=== PATIENT | male | born 1995 | race Caucasian/White ===

== ENCOUNTER 2019-02-22 09:49 | Emergency (ER) | payer MEDICAID ==
[2019-02-22 09:53] VITALS: BP 174/97; Wt 162.7 kg
[2019-02-22] MEDS ORDERED: TYLENOL W/CODEI1 TAB PO (10:56)
== END 2019-02-22 11:03 | disposition home or self-care (01) ==
LOC: EDSEX 09:49 → D.ER 09:49
DX: J01.90 Acute sinusitis, unspecified (principal)

== ENCOUNTER 2019-04-14 15:31 | Emergency (ER) | payer MEDICAID ==
[~2019-04-14] VITALS: Ht 182.9 cm; Wt 156.8 kg
[~2019-04-14 15:31] MED LIST: TYLENOL W/CODEI1 TAB PO
[2019-04-14 15:50] VITALS: Ht 182.9 cm; Wt 156.8 kg
[2019-04-14] MEDS ORDERED: [UNRECOGNIZED DRUG - REMARK] (15:51)
[2019-04-14 16:27] LABS: BASOPHILS 0.3 % (0-2); EOSINOPHILS 1.5 % (0-7); HEMATOCRIT 48.7 % (42.0-54.0); IMMATURE GRANULOCYTES 0.3 % (0-5); LYMPHOCYTES 29.9 % (15-50); MCH 29.1 pg (26.0-34.0); MCHC 32.9 g/dL (31.0-37.0); MCV 88.5 fL (80.0-100.0); MEAN PLATELET VOLUME 10.4 fL (7.4-10.4); MONOCYTES 7.6 % (2-11); NEUTROPHILS 60.4 % (40-80); PLATELET COUNT 234 10x3/uL (130-400); RDW 13.3 % (11.5-14.5); WBC 11.6 10x3/uL (4.8-10.8)
--- NOTE | 2019-04-14 16:31 | NUR ---
DR. BERNARD NOTIFIED AND SITTER ORDERED. SITTER AT BEDSIDE. SITTER AT BEDSIDE. NOTIIFED CHARGE NURSE AND ATTENDING IN REGARDS TO ASSESSMENT FINDINGS. RESOURCES GIVEN AND SAFETY PLAN INITIATED.
[2019-04-14 16:37] LABS: APPEARANCE CLEAR (CLEAR); BILIRUBIN NEGATIVE (NEGATIVE); COLOR YELLOW (YELLOW); GLUCOSE NEGATIVE (NEGATIVE); KETONE NEGATIVE (NEGATIVE); NITRITE NEGATIVE (NEGATIVE); PROTEIN NEGATIVE (NEGATIVE); SPECIFIC GRAVITY 1.015 (1.005-1.020); UROBILINOGEN NORMAL (NORMAL)
[2019-04-14 16:39] LABS: CALC OSMOLALITY 283 mosm/kg (275-300); CALCIUM 8.6 mg/dL (8.5-10.1); CARBON DIOXIDE 28.2 mmol/L (21.0-32.0); CHLORIDE - SERUM 107 mmol/L (98-107); CREATININE - SERUM 0.8 mg/dL (0.6-1.3); GLUCOSE 87 mg/dL (74-106); SODIUM 144 mmol/L (136-145); UREA NITROGEN 7 mg/dL (7-18); eGFR NON AFRICAN AMERICAN > 90 mL/min (90-120)
[2019-04-14 16:43] LABS: ALBUMIN 3.8 g/dL (3.4-5.0); ALKALINE PHOSPHATASE 71 U/L (46-116); ALT (SGPT) 54 U/L (10-68); PROTEIN - SERUM 6.7 g/dL (6.4-8.2)
[2019-04-14 16:45] LABS: UDS - AMPHET NEGATIVE QUAL (NEGATIVE); UDS - BARB NEGATIVE QUAL (NEGATIVE); UDS - BENZO NEGATIVE QUAL (NEGATIVE); UDS - COCAINE NEGATIVE QUAL (NEGATIVE); UDS - OPIATE NEGATIVE QUAL (NEGATIVE); UDS - PCP NEGATIVE QUAL (NEGATIVE); UDS - THC POSITIVE QUAL (NEGATIVE)
[2019-04-14 20:42] VITALS: BP 151/100
== END 2019-04-14 20:44 | disposition other institution (70) ==
LOC: D.ER 15:31
PROVIDERS: Family Medicine
DX: R45.851 Suicidal ideations (principal); F32.9 Major depressive disorder, single episode, unspecified; I10 Essential (primary) hypertension

== ENCOUNTER 2019-04-26 23:12 | Emergency (ER) | payer MEDICAID ==
[~2019-04-26] VITALS: Ht 182.9 cm; Wt 154.5 kg
[~2019-04-26 23:12] MED LIST changes: +[UNRECOGNIZED DRUG - REMARK]
[2019-04-26 23:17] VITALS: Ht 182.9 cm; Wt 154.5 kg
[2019-04-26] MEDS ORDERED: NORVASC10 MG PO (23:20)
[2019-04-26] MEDS ORDERED: CARBATROL100 MG PO (23:20)
[2019-04-26] MEDS ORDERED: ZOLOFT100 MG PO (23:20)
[2019-04-27 00:04] LABS: APPEARANCE CLEAR (CLEAR); BACTERIA NONE SEEN /hpf (NEGATIVE); BILIRUBIN NEGATIVE (NEGATIVE); COLOR YELLOW (YELLOW); EPITHELIAL CELLS NSEEN /hpf (0-5); GLUCOSE NEGATIVE (NEGATIVE); KETONE NEGATIVE (NEGATIVE); NITRITE NEGATIVE (NEGATIVE); PROTEIN NEGATIVE (NEGATIVE); RED CELLS - URINE 0-5 /hpf (0-5); SPECIFIC GRAVITY 1.015 (1.005-1.020); URIC ACID CRYSTALS OCC /hpf (NONE SEEN); UROBILINOGEN NORMAL (NORMAL); WHITE CELLS - URINE NSEEN /hpf (NEGATIVE)
[2019-04-27] MEDS ORDERED: FLOMAX0.4 MG PO (01:23)
[2019-04-27] MEDS ORDERED: TORADOL10 MG PO (01:23)
[2019-04-27] MEDS ORDERED: ZOFRAN8 MG PO (01:23)
[2019-04-27 01:55] VITALS: BP 148/95
== END 2019-04-27 01:55 | disposition home or self-care (01) ==
LOC: D.ER 23:12
PROVIDERS: Family Medicine
DX: R31.9 Hematuria, unspecified (principal); R10.9 Unspecified abdominal pain; I10 Essential (primary) hypertension; J45.909 Unspecified asthma, uncomplicated; F31.9 Bipolar disorder, unspecified; F17.210 Nicotine dependence, cigarettes, uncomplicated

== ENCOUNTER 2019-12-16 02:41 | Emergency (ER) | payer MEDICAID ==
[~2019-12-16] VITALS: Ht 182.9 cm; Wt 163.6 kg
[~2019-12-16 02:41] MED LIST changes: +CARBATROL100 MG PO; +FLOMAX0.4 MG PO; +NORVASC10 MG PO; +TORADOL10 MG PO; +ZOFRAN8 MG PO; +ZOLOFT100 MG PO
[2019-12-16 02:47] VITALS: Ht 182.9 cm; Wt 163.6 kg
[2019-12-16] MEDS ORDERED: AUGMENTIN 875-11 TAB PO (03:09)
[2019-12-16] MEDS ORDERED: NAPROSYN500 MG PO (03:09)
[2019-12-16 03:18] VITALS: BP 164/98
== END 2019-12-16 03:30 | disposition home or self-care (01) ==
LOC: D.ER 02:41
DX: K04.7 Periapical abscess without sinus (principal); K02.9 Dental caries, unspecified; K08.89 Other specified disorders of teeth and supporting structures; Z72.0 Tobacco use; I10 Essential (primary) hypertension; J45.909 Unspecified asthma, uncomplicated